=== PATIENT | male | born 1960 | race African-American/Black ===

== ENCOUNTER 2021-01-06 09:34 | Observation (INO) | payer MEDICARE, MEDICAID, SELFPAY ==
[2021-01-06] VITALS (37 sets, daily range): BP systolic 123–167; BP diastolic 62–98; PULSE 34–55; RESP 9–21; TEMP 36.2–37.1; O2SAT 96–100; BMI 27.1
--- NOTE | ~2021-01-06 | XR_ITS ---
EXAMINATION: XR chest 1V portable DATE: 01/06/2021 10:00 INDICATION: Chest pain and tightness TECHNIQUE: frontal view of the chest was obtained. COMPARISON: None FINDINGS: The lungs are clear with no focal airspace opacities, pulmonary edema, pleural effusion or pneumothor ax. The cardiomediastinal silhouette is normal. Median sternotomy wires and mediastinal surgical clip s are seen, likely from prior coronary artery bypass grafting. There has also been a prior aortic pam ve repair. IMPRESSION: 1. No acute cardiopulmonary disease. Reviewed, dictated and finalized at location A.
--- NOTE | 2021-01-06 09:49 | ECG_ITS ---
Measurements Intervals [place] Rate: 44 P: 74 OR: 126 QRS: -22 QRSD: 142 T: 70 QT: 479 QTc: 411 Interpretive Statements SINUS BRADYCARDIA WITH MARKED SINUS ARRHYTHMIA POSSIBLE LEFT ATRIAL ENLARGEMENT INTRAVENTRICULAR CONDUCTION DELAY DELAYED PRECORDIAL R/S TRANSITION PEAKED T WAVES- CONSIDER HYPERKALEMIA OR ISCHEMIA BORDERLINE ST-T WAVE ABNORMALITY- INF/LAT LEADS ABNORMAL ECG Electronically Signed On 01-06-2021 16:19:00 CDT by Hamilton Matthew D.O.
--- NOTE | 2021-01-06 09:50 | ED.ARRPALP ---
HPI - Arrhythmia/Palpitations General Chief Complaint: Arrhythmia/Palpitations Stated Complaint: hr low Time Seen by Provider: 01/06/21 09:37 Source: RN notes reviewed History of Present Illness HPI narrative: Patient presents emergency room from home for bradycardia. Patient states that he has his heart rate has been running in the 40s for the past 4 days he states that today he went down to 35 he came in for further evaluation. The patient states that with that he has had some mild intermittent dizziness as well as some mild shortness of breath and feelings of chest tightness he states that he does not have a history of bradycardia he denies any fevers or chills abdominal pain or any other symptoms patient states that his metoprolol had recently been decreased from 50 mg twice a day to 25 mg twice a day Related Data Allergies Allergy/AdvReac Type Severity Reaction Status Date / Time No Known Allergies Allergy Unverified 12/13/17 21:57 Review of Systems Review of Systems: Gen.: Denies fevers or chills ENT: Denies congestion Respiratory: Reports mild shortness of CV: See HPI GI: Denies abdominal pain nausea, emesis or diarrhea Musculoskeletal: Denies back pain or muscle pain Neuro: Denies numbness, tingling, weakness or focal weakness Skin: Denies rash Except as documented, all other systems reviewed and negative [facility] Past Medical History Medical History (Updated 01/06/21 @ 10:37 by Tha Olea DO) Coronary artery disease Hypertension Surgical History Surgical History (Updated 01/06/21 @ 10:36 by Tha Olea DO) Heart valve replaced Social History Social History (Updated 01/06/21 @ 09:51 by Tha Olea DO) Smoking status: Never smoker Exam Narrative: APPEARANCE: No acute distress, nontoxic, resting in bed EYES: EOMI HEENT: Normocephalic, atraumatic, OMM RESPIRATORY: No respiratory distress Clear to auscultation bilaterally with no rhonchi wheezing or rales. CARDIOVASCULAR: Bradycardic and regular without murmurs rubs or gallops. ABDOMINAL: Soft, nontender, nondistended, no rebound or guarding MUSCULOSKELETAl: Moves all extremities. No clubbing, cyanosis or edema. NEURO: Awake and alert. Following commands, speech normal, no focal deficits SKIN:: Warm, dry. No rashes lesions or abrasions PSYCHIATRIC: Normal affect/mood, Course Course Emergency Course: Called and discussed with Dr. Lees agrees with plan for consult at this time will observe to hospitalist group Dr. Zuniga accepts patient to hospitalist service Discussed with patient and family results of workup and diagnosis. Discussed need for admission. Patient and family understand and agree to current treatment plan Vital Signs Vital signs: Vital Signs Pulse Rate 38 L 01/06/21 09:42 Respiratory Rate 19 01/06/21 09:42 Blood Pressure 164/76 H 01/06/21 09:42 Pulse Oximetry 96 01/06/21 09:42 Temperature 98.8 F 01/06/21 09:44 Pulse Rate 43 L 01/06/21 09:44 Respiratory Rate 19 01/06/21 09:44 Blood Pressure 167/66 H 01/06/21 09:44 Pulse Oximetry 99 01/06/21 09:44 MDM - Arrhythmia/Palpitations Lab Data Result diagrams: 01/06/21 09:56 01/06/21 09:56 Labs: Lab Results 01/06/21 01/06/21 01/06/21 Range/Units 09:56 09:56 09:56 WBC 7.8 (4.5-10.0) K/mm3 RBC 5.27 (4.6-6.20) M/mm3 Hgb 12.9 L (14.0-18.0) g/dL Hct 41.7 L (42.0-52.0) % MCV 79.1 L (80-100) fl MCH 24.5 L (26-34) pg MCHC 30.9 L (32-36) g/dl RDW 17.6 H (11.5-14.5) % Plt Count 198 (150-375) k/mm3 MPV 9.2 (7.4-10.4) fl Immature Gran % (Auto) 0.3 (0-0.5) % Neut % (Auto) 55.2 (45.5-73.1) % Lymph % (Auto) 28.3 (18.3-44.2) % [place] % (Auto) 11.4 H (2.6-8.5) % Eos % (Auto) 4.2 (0-4.4) % Baso % (Auto) 0.6 (0.2-1.2) % Lymph # (Auto) 2.22 (0.9-3.2) K/mm3 [place] # (Auto) 0.9 H (0.1-0.6) K/mm3 Eos # (Auto) 0.3 (0-0.3) K/m
[2021-01-06 10:01] LABS: Basophils Absolute Auto 0.1 K/mm3 (0.0-0.1); Basophils Percent Auto 0.6 % (0.2-1.2); Eosinophils Absolute Auto 0.3 K/mm3 (0-0.3); Eosinophils Percent Auto 4.2 % (0-4.4); Hematocrit 41.7 % (42.0-52.0); Hemoglobin 12.9 g/dL (14.0-18.0); Immature Granulocyte Absolute 0.02 K/mm3 (0.00-0.031); Immature Granulocyte Percent A 0.3 % (0-0.5); Lymphocytes Absolute Auto 2.22 K/mm3 (0.9-3.2); Lymphocytes Percent Auto 28.3 % (18.3-44.2); Mean Corpuscular HGB Conc 30.9 g/dl (32-36); Mean Corpuscular Hemoglobin 24.5 pg (26-34); Mean Corpuscular Volume 79.1 fl (80-100); Mean Platelet Volume 9.2 fl (7.4-10.4); Monocytes Absolute Auto 0.9 K/mm3 (0.1-0.6); Monocytes Percent Auto 11.4 % (2.6-8.5); Neutrophils Absolute Auto 4.3 K/mm3 (1.3-6.7); Neutrophils Percent Auto 55.2 % (45.5-73.1); Platelet Count Result 198 k/mm3 (150-375); Red Blood Count 5.27 M/mm3 (4.6-6.20); Red Cell Distribution Width 17.6 % (11.5-14.5); White Blood Count 7.8 K/mm3 (4.5-10.0)
--- NOTE | 2021-01-06 10:01 | PC.NURSE ---
chem, deshaun, BNP
[2021-01-06 10:15] LABS: Anion Gap 8 mmol/L (8-16); Blood Urea Nitrogen 17 mg/dL (9-20); Calcium 9.2 mg/dL (8.4-10.2); Carbon Dioxide 26 mmol/L (22-30); Chloride 108 mmol/L (98-107); Estimated CRCL calculation 68 ml/min; Estimated Glomerular Filt Rate > 60; Glucose 113 mg/dL (65-110); Potassium 4.8 mmol/L (3.4-5.0); Sodium 142 mmol/L (137-145)
[2021-01-06 10:22] LABS: Troponin I < 0.012 ng/mL (0.000-0.034)
[2021-01-06 10:25] LABS: INR 1.1
[2021-01-06 10:26] LABS: Partial Thromboplastin Time 32.3 SECONDS (22.3-36.8)
[2021-01-06 10:31] LABS: NT Pro B Type Natriuretic Pept 366 pg/mL (5-100)
[2021-01-06 13:27] LABS: Troponin I < 0.012 ng/mL (0.000-0.034)
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
[2021-01-06 16:29] LABS: Troponin I < 0.012 ng/mL (0.000-0.034)
[2021-01-06] MEDS: PANTOPRAZOLE SOD SESQUIHYDRATE 20 MG TAB PO (17:35)
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
[2021-01-06] MEDS: RIVAROXABAN 2.5 MG TABLET PO (20:09)
[2021-01-06] MEDS: ATORVASTATIN 40 MG TABLET PO (20:09)
[2021-01-07] VITALS (8 sets, daily range): BP systolic 130–144; BP diastolic 64–74; PULSE 45–56; RESP 14–19; TEMP 35.6–36.7; O2SAT 96–99
[2021-01-07] MEDS: MORPHINE SULFATE (*CRX) 2 MG/ML INJ 1 MG IV PUSH (05:43)
[2021-01-07 06:19] LABS: Basophils Percent Auto 0.6 % (0.2-1.2); Eosinophils Absolute Auto 0.2 K/mm3 (0-0.3); Eosinophils Percent Auto 3.5 % (0-4.4); Hematocrit 38.2 % (42.0-52.0); Immature Granulocyte Absolute 0.03 K/mm3 (0.00-0.031); Immature Granulocyte Percent A 0.4 % (0-0.5); Lymphocytes Absolute Auto 2.06 K/mm3 (0.9-3.2); Mean Corpuscular HGB Conc 31.4 g/dl (32-36); Mean Corpuscular Hemoglobin 24.2 pg (26-34); Mean Corpuscular Volume 77.2 fl (80-100); Mean Platelet Volume 9.6 fl (7.4-10.4); Monocytes Absolute Auto 0.8 K/mm3 (0.1-0.6); Monocytes Percent Auto 11.1 % (2.6-8.5); Neutrophils Absolute Auto 3.7 K/mm3 (1.3-6.7); Neutrophils Percent Auto 54.4 % (45.5-73.1); Platelet Count Result 205 k/mm3 (150-375); Red Blood Count 4.95 M/mm3 (4.6-6.20); Red Cell Distribution Width 17.1 % (11.5-14.5); White Blood Count 6.9 K/mm3 (4.5-10.0)
[2021-01-07 06:28] LABS: Anion Gap 7 mmol/L (8-16); Blood Urea Nitrogen 18 mg/dL (9-20); Calcium 8.8 mg/dL (8.4-10.2); Carbon Dioxide 28 mmol/L (22-30); Chloride 108 mmol/L (98-107); Estimated CRCL calculation 74 ml/min; Estimated Glomerular Filt Rate > 60; Glucose 113 mg/dL (65-110); Lactate Dehydrogenase 557 U/L (313-618); Magnesium 2.1 mg/dL (1.6-2.3); Potassium 4.1 mmol/L (3.4-5.0); Sodium 143 mmol/L (137-145)
[2021-01-07] MEDS: LOSARTAN POTASSIUM 25 MG TABLET PO (08:40)
[2021-01-07] MEDS: COLCHICINE 0.6 MG TABLET PO (08:40)
[2021-01-07] MEDS: PANTOPRAZOLE SOD SESQUIHYDRATE 20 MG TAB PO (08:41)
--- NOTE | 2021-01-07 09:38 | PM.PNCARD ---
Progress Note: A&P Assessment and Plan (1) Bradycardia, sinus: Code(s): R00.1 - Bradycardia, unspecified Status: Acute Assessment and Plan: Patient is somewhat incidentally noted his heart rate was slow recently but this seems to be progressive. Minimally symptomatic. Likely due to beta-ubaldo and an underlying aging conduction system. There is a possibility that the bradycardia is due to underlying ischemia rather than medication but the patient's chest pain is not typical for angina. Metoprolol has been discontinued. HR mid 50's now. Some bradycardia overnight (HR mostly 40's, some high 30's), no significant pauses. No indication for PPM at this time. OK to discharge from a cardiac standpoint with no metoprolol. Pt. should f/u with Dr. Chappell within a couple of weeks. (2) Abnormal EKG: Code(s): R94.31 - Abnormal electrocardiogram [ECG] [EKG] Status: Acute Assessment and Plan: In addition to the bradycardia the patient has ?U? waves and some T-wave inversion laterally. His potassium level is fine. Will see if I can find an old EKG. (3) Coronary artery disease: Code(s): I25.10 - Atherosclerotic heart disease of [place] coronary artery without angina pectoris Status: Chronic Assessment and Plan: History of single-vessel CABG. Troponins negative. (4) S/P aortic valve replacement with bioprosthetic valve: Code(s): Z95.3 - Presence of xenogenic heart valve Status: Acute Assessment and Plan: History of bioprosthetic aortic and mitral valve replacements as well as the septal myomectomy. The patient's murmurs sound fairly prominent so he should follow-up with Dr. Chappell soon and get another echocardiogram. (5) Hypertension: Code(s): I10 - Essential (primary) hypertension Status: Chronic Assessment and Plan: Add losartan for hypertension. BP better controlled today. Continue losartan 25mg daily Subjective Date/time seen: 01/07/21 09:38 Cardiology follow up Date of service 01/07/2021: Having some abdominal cramping today but does not have any cardiac complaints of any kind. He denies shortness of breath, chest pain. Review of Systems Constitutional: Constitutional: Reports fatigue, Reports lethargy and Reports weakness Eyes: Eyes: Reports no additional eye complaints ENT: Reports vertigo (Sometimes things seem to spin when he stands up) and Denies epistaxis Cardiovascular: Cardiovascular: Reports chest pain, Reports leg edema, Reports lightheadedness, Denies palpitations, Reports dyspnea and Reports dyspnea on exertion Respiratory: Respiratory: Denies chest congestion, Reports dyspnea and Reports dyspnea on exertion Gastrointestinal: Gastrointestinal: Denies abdominal pain Genitourinary: Genitourinary: Denies dysuria Musculoskeletal: Musculoskeletal: Reports arthralgias Integumentary/Breasts: Skin/Breast: Denies rash Neurologic: Reports vertigo (Sometimes things seem to spin when he stands up) and Reports weakness Psychiatric: Psychiatric: Reports no additional psychiatric complaints Endocrine: Endocrine: Reports fatigue and Denies palpitations Exam Narrative: Pleasant [place]ro[place] male no distress Const: General: comfortable and no acute distress HENMT: Mouth: Yes moist mucous membranes Eyes: EOM: EOMs intact bilaterally Neck: Neck: supple Thyroid: thyroid normal Resp: Effort & Inspection: normal respiratory effort Auscultation: clear to auscultation bilaterally Cardio: Rate: regular rate Rhythm: regular rhythm Heart sounds: Murmur heart sound present systolic II/, with radiation to the left axilla and to the carotids, at the apex, at the left sternal border and at the right sternal border Skin: General skin exam: no rashes or lesions noted Neuro: Cognition (Neuro): normal cognition Speech: normal speech Extrem: General: no edema and no pedal edema Psych: Mental Status: mental st
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
== END 2021-01-07 16:00 | disposition home or self-care (01) ==
LOC: ANHED 10:37 → ANHIMU 12:28 → ANHCPC 15:25
PROVIDERS: Nurse Practitioner; Admitting Provider Internal Medicine; Emergency Provider Emergency Medicine; PCP Internal Medicine; Visit Provider Internal Medicine
DX: R00.1 Bradycardia, unspecified (principal); R94.31 Abnormal electrocardiogram [ECG] [EKG]; R07.89 Other chest pain; I10 Essential (primary) hypertension; I25.10 Atherosclerotic heart disease of native coronary artery without angina pectoris; E78.5 Hyperlipidemia, unspecified; K21.9 Gastro-esophageal reflux disease without esophagitis; R06.02 Shortness of breath; Z95.2 Presence of prosthetic heart valve; Z95.5 Presence of coronary angioplasty implant and graft; Z95.1 Presence of aortocoronary bypass graft
CPT/HCPCS: 36415; 71045; 80048; 83605; 83615; 83735; 83880; 84484; 85025; 85610; 85730; 93005; 96374; 99285; A9270; G0378; J2270

== ENCOUNTER 2021-07-07 13:55 | Emergency (ER) | payer MEDICARE, MEDICAID, SELFPAY ==
[2021-07-07] VITALS (19 sets, daily range): BP systolic 131–148; BP diastolic 75–82; PULSE 56–63; RESP 10–22; TEMP 36.7; O2SAT 96–100
--- NOTE | ~2021-07-07 | XR_ITS ---
EXAMINATION: XR chest 1V portable EXAM DATE: 07/07/2021 14:21 INDICATION: Chest pain. TECHNIQUE: Portable AP frontal chest x-ray was obtained. Comparison is made to prior examination from 01/06/2021. FINDINGS: Sternotomy wires are present without findings to suggest sternal dehiscence. There is cardi ac valve replacement. The cardiac silhouette is enlarged. There is pulmonary vascular congestion. No confluent consolidation, pneumothorax or pleural effusion suspected. There is no significant interval change. IMPRESSION: Cardiomegaly, pulmonary vascular congestion unchanged. Reviewed, dictated and finalized at location B.
--- NOTE | 2021-07-07 14:11 | ECG_ITS ---
Measurements Intervals [place] Rate: 62 P: 66 ME: 120 QRS: -25 QRSD: 146 T: 149 QT: 431 QTc: 439 Interpretive Statements SINUS RHYTHM POSSIBLE LEFT ATRIAL ENLARGEMENT [-0.1mV P WAVE IN V1/V2] NONSPECIFIC INTERVENTRICULAR CONDUCTION DELAY LATERAL ST ABNORMALITIES CONSIDER MYOCARDIAL ISCHEMIA ABNORMAL ECG COMPARED TO ECG 01/06/2021 09:42:23 HEART RATE HAS INCREASED AND LATERAL ST ABNORMALITIES MORE PROMINENT Electronically Signed On 07-07-2021 15:34:18 CDT by Jose Power M.D.
[2021-07-07 14:19] LABS: Basophils Percent Auto 0.5 % (0.2-1.2); Eosinophils Absolute Auto 0.4 K/mm3 (0-0.3); Eosinophils Percent Auto 4.8 % (0-4.4); Hematocrit 43.6 % (42.0-52.0); Hemoglobin 13.1 g/dL (14.0-18.0); Immature Granulocyte Absolute 0.02 K/mm3 (0.00-0.031); Immature Granulocyte Percent A 0.3 % (0-0.5); Lymphocytes Absolute Auto 2.38 K/mm3 (0.9-3.2); Lymphocytes Percent Auto 32.6 % (18.3-44.2); Mean Corpuscular Volume 79.9 fl (80-100); Mean Platelet Volume 9.4 fl (7.4-10.4); Monocytes Absolute Auto 1.1 K/mm3 (0.1-0.6); Monocytes Percent Auto 14.5 % (2.6-8.5); Neutrophils Absolute Auto 3.5 K/mm3 (1.3-6.7); Neutrophils Percent Auto 47.3 % (45.5-73.1); Platelet Count Result 204 k/mm3 (150-375); Red Blood Count 5.46 M/mm3 (4.6-6.20); Red Cell Distribution Width 18.6 % (11.5-14.5); White Blood Count 7.3 K/mm3 (4.5-10.0)
[2021-07-07 14:29] LABS: Alanine Aminotransferase 18 U/L (4-50); Albumin Level 4.3 g/dL (3.5-5.1); Alkaline Phosphatase 155 U/L (38-126); Anion Gap 7 mmol/L (8-16); Aspartate Amino Transferase 35 U/L (17-59); Bilirubin,Total 0.7 mg/dL (0.2-1.3); Blood Urea Nitrogen 20 mg/dL (9-20); Calcium 8.8 mg/dL (8.4-10.2); Carbon Dioxide 28 mmol/L (22-30); Chloride 109 mmol/L (98-107); Estimated Glomerular Filt Rate > 60; Glucose 119 mg/dL (65-110); Potassium 3.7 mmol/L (3.4-5.0); Sodium 144 mmol/L (137-145)
[2021-07-07 14:30] LABS: Prothrombin Time 12.3 Seconds (11.1-14.7)
[2021-07-07 14:41] LABS: NT Pro B Type Natriuretic Pept 244 pg/mL (5-100); Troponin I 0.013 ng/mL (0.000-0.034)
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
== END 2021-07-07 17:25 | disposition home or self-care (01) ==
PROVIDERS: Emergency Provider Family Medicine; PCP Internal Medicine
DX: R00.2 Palpitations (principal); R42 Dizziness and giddiness; E78.5 Hyperlipidemia, unspecified; I10 Essential (primary) hypertension; K21.9 Gastro-esophageal reflux disease without esophagitis; I25.10 Atherosclerotic heart disease of native coronary artery without angina pectoris; I44.7 Left bundle-branch block, unspecified; Z95.2 Presence of prosthetic heart valve; Z95.5 Presence of coronary angioplasty implant and graft; Z95.1 Presence of aortocoronary bypass graft; Z87.891 Personal history of nicotine dependence
CPT/HCPCS: 36415; 71045; 80053; 83880; 84484; 85025; 85610; 93005; 99284

== ENCOUNTER 2023-04-20 22:26 | Emergency (ER) | payer MEDICARE, MEDICAID, SELFPAY ==
--- NOTE | ~2023-04-20 | XR_ITS ---
Right Knee Technique: AP, lateral, and sunrise views were obtained. Clinical History: Pain Findings: No fracture or dislocation is seen. Osseous alignment is anatomic. There are curvilinear sc lerotic lesions in the distal femoral shaft and proximal tibial shaft. Joint spaces are preserved wit hout degenerative or erosive change. Soft tissues are unremarkable. No joint effusion is seen. Impression: Intramedullary lesions of the distal femur and proximal tibia, suggestive of bone infarcts versus pos sibly enchondromas. No acute abnormality evident. Reviewed, dictated and finalized at location M. MOTIVE SWITCH OPERATOR Impression: Intramedullary lesions of the distal femur and proximal tibia, suggestive of isela ne infarcts versus possibly enchondromas. No acute abnormality evident.
--- NOTE | ~2023-04-20 | XR_ITS ---
AP view of the pelvis and AP and lateral views of the right hip Clinical history: Pain Findings: There are 2 orthopedic screws at the intertrochanteric region of the proximal right femur, as well as extensive orthopedic hardware involving the right acetabulum. There is marked deficiency o r absence of the right femoral head which appears to be chronic. There is superior dislocation of the proximal femur with respect to the acetabulum, possibly chronic. Relative deficiency of the acetabul ar roof may be due to congenital dysplasia or posttraumatic change. There are probable chronic fractu re deformities of the right inferior pubic ramus. Left hip joint space is preserved. The left proximal femur is unremarkable in morphology. Soft tissues are unremarkable. 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 Correlate for prior resec tion versus destructive/erosive process, or congenital dysplasia. Superior dislocation of the proximal right ureter with respect to the acetabulum, possibly chronic. Extensive orthopedic hardware involving the right acetabular region and proximal right femur. Correla te with clinical history. Relative deficiency of the right acetabular roof. This could reflect congen ital hip dysplasia versus posttraumatic or postoperative change. Again, correlation with surgical his tory would be useful. Reviewed, dictated and finalized at location M. 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 Cor relate for prior resection versus destructive/erosive process, or congenital dy splasia. Superior dislocation of the proximal right ureter with respect to the acetabulu m, possibly chronic. Extensive orthopedic hardware involving the right acetabular region and proxima l right femur. Correlate with clinical history. Relative deficiency of the righ t acetabular roof. This could reflect congenital hip dysplasia versus posttraum atic or postoperative change. Again, correlation with surgical history would be useful.
--- NOTE | ~2023-04-20 | CT_ITS ---
Non-contrast CT scan of the Pelvis Clinical indication: Pain Technique: 2.5 mm axial scans were obtained through the pelvis without intravenous or oral contrast. Dose reduction technique was used on this scan by utilizing automated exposure control and iterative reconstruction technique. The dose-length product (DLP) was 773.18 mGy-cm. Findings: There are orthopedic compression plates with interlocking screws extensively involving the right acetabulum and inferior right iliac bone. There are 2 orthopedic screws in the intertrochanteri c region of the proximal right femur. There is probable prior resection of the right femoral head rig ht acetabular roof is markedly deficient, possibly due to prior trauma or surgery versus congenital d ysplasia. There is superior displacement/dislocation of the proximal right femur with respect to the right acetabular region. There are multiple small bone fragments about the right hip joint region, li oma chronic. No definite acute fracture identified. The above-mentioned findings are probably all ch ronic in nature. There is mild degenerative change of bilateral SI joints. Left hip joint is unremarkable. Probable joint effusion about the right hip. Visualized musculature is grossly unremarkable. Urinary bladder unremarkable. No pelvic mass evident. Visualized bowel loops are unremarkable. No asc ites seen in the pelvis. Impression: Extensive probable chronic changes at the right hip joint, as detailed above, including extensive pos toperative change of the right acetabular region and intertrochanteric portion of the right femur, pr obable prior resection of the right femoral head, as well as multiple probable chronic bone fragments about the right hip joint region. There is deficiency of the right acetabular roof, which could be p osttraumatic/postsurgical in nature versus an element of congenital dysplasia There is superior dislocation/displacement of the proximal right femur with respect to the acetabulum , likely chronic in nature, though this isn't certain. Reviewed, dictated and finalized at location M. ICAL DESIGN ENGINEER Impression: Extensive probable chronic changes at the right hip joint, as detailed above, i ncluding extensive postoperative change of the right acetabular region and inte rtrochanteric portion of the right femur, probable prior resection of the right femoral head, as well as multiple probable chronic bone fragments about the ri ght hip joint region. There is deficiency of the right acetabular roof, which c ould be posttraumatic/postsurgical in nature versus an element of congenital dy splasia There is superior dislocation/displacement of the proximal right femur with res pect to the acetabulum, likely chronic in nature, though this isn't certain.
[2023-04-20 22:52] VITALS: BP 115/73; PULSE 88; RESP 20; TEMP 37.2; O2SAT 99
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
[2023-04-21 04:24] VITALS: BP 138/81; PULSE 82; RESP 15; O2SAT 96
[2023-04-21 06:50] VITALS: BP 132/81; PULSE 84; RESP 15; O2SAT 99
== END 2023-04-21 06:52 | disposition home or self-care (01) ==
PROVIDERS: Emergency Provider Emergency Medicine
DX: M25.551 Pain in right hip (principal); I25.10 Atherosclerotic heart disease of native coronary artery without angina pectoris; I10 Essential (primary) hypertension; E78.5 Hyperlipidemia, unspecified; K21.9 Gastro-esophageal reflux disease without esophagitis; Z95.5 Presence of coronary angioplasty implant and graft; Z95.1 Presence of aortocoronary bypass graft; Z95.2 Presence of prosthetic heart valve; Z87.891 Personal history of nicotine dependence
CPT/HCPCS: 72192; 73502; 73562; 99284

== ENCOUNTER 2023-10-27 18:00 | Emergency (ER) | payer MEDICARE, MEDICAID, SELFPAY ==
[2023-10-27 18:29] VITALS: BP 109/65; PULSE 82; RESP 18; TEMP 36.5; O2SAT 99
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
[2023-10-27] MEDS: KETOROLAC 30 MG/ML VIAL (*BKC) IM (20:59)
[2023-10-27] MEDS: COLCHICINE 0.6 MG TABLET PO (21:00)
[2023-10-27] MEDS: ACETAMINOPHEN 500 MG TABLET 1000 MG PO (21:00)
[2023-10-27 21:10] VITALS: BP 168/82; PULSE 72; RESP 18; TEMP 37.2; O2SAT 100
== END 2023-10-27 21:12 | disposition home or self-care (01) ==
PROVIDERS: Emergency Provider Emergency Medicine
DX: M17.0 Bilateral primary osteoarthritis of knee (principal); M19.042 Primary osteoarthritis, left hand; I25.10 Atherosclerotic heart disease of native coronary artery without angina pectoris; M19.041 Primary osteoarthritis, right hand; I10 Essential (primary) hypertension; E78.5 Hyperlipidemia, unspecified; K21.9 Gastro-esophageal reflux disease without esophagitis; Z95.5 Presence of coronary angioplasty implant and graft; Z95.1 Presence of aortocoronary bypass graft; Z95.3 Presence of xenogenic heart valve; Z87.891 Personal history of nicotine dependence
CPT/HCPCS: 96372; 99283; A9270; J1885